=== PATIENT | female | born 1980 | race Caucasian/White ===

== ENCOUNTER 2017-03-17 09:44 | Emergency (ER) | payer MEDICAID ==
[~2017-03-17] VITALS: Ht 167.6 cm; Wt 77.3 kg
[~2017-03-17 09:44] MED LIST: IBUP-1986 PO
[2017-03-17] MEDS ORDERED: ketorolac trometh inj. 60 MG/2 ML VIAL IM ONE (10:10)
[2017-03-17] MEDS ORDERED: METH4TAB81 PO (10:41)
[2017-03-17] MEDS ORDERED: CYCL-1 PO (10:41)
[2017-03-17] MEDS ORDERED: TRAM50TA2 PO (10:41)
[2017-03-17 10:49] VITALS: BP 125/83
== END 2017-03-17 10:50 | disposition home or self-care (01) ==
LOC: ER 09:44
DX: M54.12 Radiculopathy, cervical region (principal); M79.602 Pain in left arm; R51 Headache; G89.29 Other chronic pain; M48.00 Spinal stenosis, site unspecified; M79.7 Fibromyalgia; F12.10 Cannabis abuse, uncomplicated; Z98.51 Tubal ligation status; Z79.899 Other long term (current) drug therapy
CPT/HCPCS: 72040; 96372; 99284; J1885

== ENCOUNTER 2017-06-16 15:24 | Emergency (ER) | payer MEDICAID ==
[~2017-06-16] VITALS: Ht 170.2 cm; Wt 75.0 kg
[2017-06-16 15:24] VITALS: BP 131/89
[~2017-06-16 15:24] MED LIST changes: +CYCL-1 PO; +METH4TAB81 PO
[2017-06-16] MEDS ORDERED: ketorolac trometh. 30mg/ml inj. IV ONE (15:40)
[2017-06-16] MEDS ORDERED: normal saline 1000ML IV soln IVB ONE (15:40)
[2017-06-16 15:45] LABS: BASOPHILS # (AUTO) 0.1 X10'3 (0-0.2); EOSINOPHILS # (AUTO) 0.1 X10'3 (0-0.9); EOSINOPHILS % (AUTO) 1.2 % (0-6); HEMATOCRIT 37.4 % (35.0-45.0); LYMPHOCYTES # (AUTO) 2.9 X10'3 (1.1-4.8); LYMPHOCYTES % (AUTO) 28.8 % (21-51); MEAN CORPUSCULAR HEMOGLOBIN 33.6 PG (27.0-31.0); MEAN CORPUSCULAR HGB CONC 34.6 % (33.0-36.5); MEAN PLATELET VOLUME 9.4 FL (7.4-10.4); MONOCYTES # (AUTO) 0.4 X10'3 (0-0.9); MONOCYTES % (AUTO) 4.1 % (2-12); NEUTROPHILS # (AUTO) 6.6 X10'3 (1.8-7.7); NEUTROPHILS % (AUTO) 64.9 % (42-75); PLATELET COUNT 202 X10'3 (140-440); RED BLOOD COUNT 3.86 X10'6 (4.20-5.60); RED CELL DISTRIBUTION WIDTH 12.6 % (11.5-14.5); WHITE BLOOD COUNT 10.2 X10'3 (4.5-11.0)
[2017-06-16 15:47] LABS: CLARITY,URINE SLIGHTLY CLOUDY (Clear); COLOR,URINE YELLOW (Yellow); GLUCOSE, URINE NEGATIVE (Neg); KETONES,URINE NEGATIVE (Neg); LEUKOCYTE ESTERASE ,URINE NEGATIVE (Neg); NITRITES, URINE NEGATIVE (Neg); OCCULT BLOOD,URINE NEGATIVE (Neg); PROTEIN,URINE TRACE mg/dl (Neg)
[2017-06-16 15:54] LABS: PROTHROMBIN TIME 10.7 SECONDS (9.0-12.0)
[2017-06-16 15:54] LABS: UA COLLECTION TYPE CLN CATCH MIDSTREAM
[2017-06-16 15:56] LABS: MUCUS STRANDS NONE SEEN /LPF (Neg); RBC,URINE 0-2 /HPF (0-2); SQUAMOUS EPITHELIAL CELL,UR MANY /LPF (FEW); WBC,URINE NONE SEEN /HPF (0-4)
[2017-06-16 15:57] LABS: BACTERIA,URINE 3+ /HPF (Neg)
[2017-06-16 16:00] LABS: ALANINE AMINOTRANSFERASE 22 U/L (12-78); ALBUMIN 4.4 G/DL (3.4-5.0); ALBUMIN/GLOBULIN RATIO 1.5 (1.1-1.5); ALKALINE PHOSPHATASE 45 IU/L (46-116); AMYLASE 40 U/L (25-115); ANION GAP 12 (8-16); ASPARTATE AMINO TRANSFERASE 20 U/L (10-37); BILIRUBIN,TOTAL 0.5 MG/DL (0.1-1.0); BLOOD UREA NITROGEN 13 MG/DL (7-18); BUN/CREATININE RATIO 17.6 (6.6-38.0); CALCIUM 8.5 MG/DL (8.5-10.1); CHLORIDE 108 MMOL/L (99-107); CREATININE 0.74 MG/DL (0.40-0.90); GLUCOSE 89 MG/DL (70-104); LIPASE 128 U/L (73-393); POTASSIUM 3.7 MMOL/L (3.5-5.1); SODIUM 143 MMOL/L (135-145); TOTAL CARBON DIOXIDE 22.8 MMOL/L (24-32); TOTAL PROTEIN 7.4 G/DL (6.4-8.2); eGFR 88 ML/MIN
[2017-06-16] MEDS ORDERED: ACET-3067 PO (16:20)
== END 2017-06-16 16:35 | disposition home or self-care (01) ==
LOC: ER 15:24
DX: R10.32 Left lower quadrant pain (principal); G89.29 Other chronic pain; F12.10 Cannabis abuse, uncomplicated; M79.7 Fibromyalgia; Z98.51 Tubal ligation status; Z79.899 Other long term (current) drug therapy
CPT/HCPCS: 36415; 74176; 80053; 81001; 82150; 83690; 85025; 85610; 99285

== ENCOUNTER 2017-07-16 11:17 | Emergency (ER) | payer MEDICAID ==
[~2017-07-16] VITALS: Ht 170.2 cm; Wt 73.2 kg
[~2017-07-16 11:17] MED LIST changes: +ACET-3067 PO
[2017-07-16] MEDS ORDERED: HYDROcodone/acetaminophen 10/325mg tab PO ONE (13:55)
[2017-07-16] MEDS ORDERED: ketorolac trometh inj. 60 MG/2 ML VIAL IM ONE (13:55)
[2017-07-16] MEDS ORDERED: LIDOcaine 1.5% w/epinephrine 1:200,000 5ml ampul IJ ONE (13:55)
[2017-07-16] MEDS ORDERED: BUPIVAcaine/PF 2.5 mg/ml (0.25%) 30ml vial IJ ONE ×2 (13:55→14:10)
[2017-07-16] MEDS ORDERED: BUPIVAcaine 0.5% inj/PF 30 ml vial IJ ONE (14:15)
[2017-07-16] MEDS ORDERED: dexamethasone 4mg tablet PO ONE (14:25)
[2017-07-16] MEDS ORDERED: HYDR-569 PO (14:36)
[2017-07-16] MEDS ORDERED: CYCL-1 PO (14:36)
[2017-07-16] MEDS ORDERED: NAPR-56 PO (14:36)
[2017-07-16 14:41] VITALS: BP 119/82
== END 2017-07-16 14:42 | disposition home or self-care (01) ==
LOC: ER 11:18
DX: M54.2 Cervicalgia (principal); M62.838 Other muscle spasm; F12.10 Cannabis abuse, uncomplicated; G89.29 Other chronic pain; Z79.899 Other long term (current) drug therapy
CPT/HCPCS: 20552; 96372; 99284; J1885; J3490; J8540

== ENCOUNTER 2017-11-12 11:27 | Emergency (ER) | payer MEDICAID ==
[~2017-11-12] VITALS: Ht 170.2 cm; Wt 75.6 kg
[~2017-11-12 11:27] MED LIST changes: -ACET-3067 PO; +HYDR-569 PO
[2017-11-12 11:43] VITALS: BP 136/73
[2017-11-12] MEDS ORDERED: PENI500T2 PO (13:39)
[2017-11-12] MEDS ORDERED: ACET-3067 PO (13:39)
[2017-11-12] MEDS ORDERED: ketorolac trometh inj. 60 MG/2 ML VIAL IM ONE (13:45)
[2017-11-12] MEDS ORDERED: ketorolac tromethamine 15mg/ml inj. IV ONE (13:45)
== END 2017-11-12 14:00 | disposition home or self-care (01) ==
LOC: ER 11:28
DX: K02.9 Dental caries, unspecified (principal); H93.12 Tinnitus, left ear; G89.29 Other chronic pain; F12.90 Cannabis use, unspecified, uncomplicated; Z79.899 Other long term (current) drug therapy; Z98.51 Tubal ligation status; Z87.442 Personal history of urinary calculi
CPT/HCPCS: 96372; 99283; J1885

== ENCOUNTER 2018-04-13 11:31 | Emergency (ER) | payer MEDICAID ==
[~2018-04-13] VITALS: Ht 170.2 cm; Wt 74.0 kg
[~2018-04-13 11:31] MED LIST changes: +HYDR-4383 PO; -HYDR-569 PO
[2018-04-13 12:22] VITALS: BP 121/77
== END 2018-04-13 13:45 | disposition home or self-care (01) ==
LOC: ER 11:32
DX: K21.9 Gastro-esophageal reflux disease without esophagitis (principal); G89.29 Other chronic pain; M54.9 Dorsalgia, unspecified; Z98.51 Tubal ligation status; F12.90 Cannabis use, unspecified, uncomplicated
CPT/HCPCS: 99281

== ENCOUNTER 2018-10-24 09:59 | Emergency (ER) | payer MEDICAID ==
[~2018-10-24] VITALS: Ht 167.6 cm; Wt 72.7 kg
[2018-10-24 10:19] LABS: HEMATOCRIT 41.2 % (35.0-45.0); MEAN CORPUSCULAR HEMOGLOBIN 33.5 PG (27.0-31.0); MEAN CORPUSCULAR VOLUME 98.3 FL (78-98); RED BLOOD COUNT 4.19 X10'6 (4.20-5.60); WHITE BLOOD COUNT 5.1 X10'3 (4.5-11.0)
[2018-10-24 10:20] LABS: BASOPHILS # (AUTO) 0.1 X10'3 (0-0.2); BASOPHILS % (AUTO) 1.5 % (0-1); EOSINOPHILS # (AUTO) 0.1 X10'3 (0-0.9); EOSINOPHILS % (AUTO) 1.2 % (0-6); LYMPHOCYTES # (AUTO) 1.4 X10'3 (1.1-4.8); LYMPHOCYTES % (AUTO) 28.2 % (21-51); MEAN CORPUSCULAR HGB CONC 34.1 g/dL (33.0-36.5); MONOCYTES # (AUTO) 0.3 X10'3 (0-0.9); MONOCYTES % (AUTO) 5.8 % (2-12); NEUTROPHILS # (AUTO) 3.2 X10'3 (1.8-7.7); NEUTROPHILS % (AUTO) 63.3 % (42-75); PLATELET COUNT 214 X10'3 (140-440); RED CELL DISTRIBUTION WIDTH 12.3 % (11.5-14.5)
[2018-10-24 10:39] LABS: ALANINE AMINOTRANSFERASE 20 U/L (12-78); ALBUMIN 3.9 G/DL (3.4-5.0); ALBUMIN/GLOBULIN RATIO 1.2 (1.1-1.5); ALKALINE PHOSPHATASE 50 IU/L (46-116); ANION GAP 8 (8-16); ASPARTATE AMINO TRANSFERASE 11 U/L (10-37); BILIRUBIN,TOTAL 0.4 MG/DL (0.1-1.0); BLOOD UREA NITROGEN 11 MG/DL (7-18); BUN/CREATININE RATIO 16.4 (6.6-38.0); CALCIUM 8.2 MG/DL (8.5-10.1); CHLORIDE 109 MMOL/L (99-107); CREATININE 0.67 MG/DL (0.40-0.90); GLUCOSE 74 MG/DL (70-104); PARTIAL THROMBOPLASTIN TIME 27 SECONDS (22-32); POTASSIUM 4.3 MMOL/L (3.5-5.1); SODIUM 142 MMOL/L (135-145); TOTAL PROTEIN 7.1 G/DL (6.4-8.2); eGFR > 90 ML/MIN
[2018-10-24] MEDS ORDERED: LORazepam 2 mg/ml vial IM ONE (11:55)
[2018-10-24 12:31] VITALS: BP 130/90
== END 2018-10-24 12:33 | disposition home or self-care (01) ==
LOC: ER 10:00
DX: F41.9 Anxiety disorder, unspecified (principal); R51 Headache; G89.29 Other chronic pain; M79.7 Fibromyalgia; F12.90 Cannabis use, unspecified, uncomplicated; Z87.442 Personal history of urinary calculi; Z98.51 Tubal ligation status; Z79.899 Other long term (current) drug therapy
CPT/HCPCS: 36415; 71046; 80053; 84484; 85025; 85610; 85730; 93005; 96372; 99284; J2060

== ENCOUNTER 2018-10-27 18:47 | Emergency (ER) | payer MEDICAID ==
[~2018-10-27] VITALS: Ht 167.6 cm; Wt 76.3 kg
[2018-10-27 19:08] LABS: BASOPHILS # (AUTO) 0.1 X10'3 (0-0.2); BASOPHILS % (AUTO) 0.8 % (0-1); EOSINOPHILS # (AUTO) 0.1 X10'3 (0-0.9); EOSINOPHILS % (AUTO) 0.6 % (0-6); HEMATOCRIT 40.8 % (35.0-45.0); HEMOGLOBIN 13.7 g/dl (12.0-16.0); LYMPHOCYTES # (AUTO) 2.6 X10'3 (1.1-4.8); LYMPHOCYTES % (AUTO) 31.2 % (21-51); MEAN CORPUSCULAR HEMOGLOBIN 33.4 PG (27.0-31.0); MEAN CORPUSCULAR HGB CONC 33.7 g/dL (33.0-36.5); MEAN CORPUSCULAR VOLUME 99.1 FL (78-98); MEAN PLATELET VOLUME 9.7 FL (7.4-10.4); MONOCYTES # (AUTO) 0.5 X10'3 (0-0.9); MONOCYTES % (AUTO) 5.5 % (2-12); NEUTROPHILS # (AUTO) 5.2 X10'3 (1.8-7.7); NEUTROPHILS % (AUTO) 61.9 % (42-75); PLATELET COUNT 221 X10'3 (140-440); RED BLOOD COUNT 4.12 X10'6 (4.20-5.60); RED CELL DISTRIBUTION WIDTH 12.4 % (11.5-14.5); WHITE BLOOD COUNT 8.3 X10'3 (4.5-11.0)
[2018-10-27 19:23] LABS: PARTIAL THROMBOPLASTIN TIME 28 SECONDS (22-32)
[2018-10-27 19:34] LABS: ALANINE AMINOTRANSFERASE 26 U/L (12-78); ALBUMIN/GLOBULIN RATIO 1.2 (1.1-1.5); ALKALINE PHOSPHATASE 53 IU/L (46-116); ANION GAP 9 (8-16); ASPARTATE AMINO TRANSFERASE 16 U/L (10-37); BILIRUBIN,TOTAL 0.4 MG/DL (0.1-1.0); BLOOD UREA NITROGEN 18 MG/DL (7-18); BUN/CREATININE RATIO 22.8 (6.6-38.0); CALCIUM 8.6 MG/DL (8.5-10.1); CHLORIDE 107 MMOL/L (99-107); CREATININE 0.79 MG/DL (0.40-0.90); GLUCOSE 99 MG/DL (70-104); POTASSIUM 3.9 MMOL/L (3.5-5.1); SODIUM 142 MMOL/L (135-145); TOTAL CARBON DIOXIDE 26.2 MMOL/L (24-32); TOTAL PROTEIN 7.3 G/DL (6.4-8.2); eGFR 81 ML/MIN
[2018-10-27] MEDS ORDERED: famotidine 20mg tablet PO ONE (20:25)
[2018-10-27] MEDS ORDERED: LIDOcaine Viscous 15ml cup PO ONE (20:25)
[2018-10-27] MEDS ORDERED: ketorolac trometh inj. 60 MG/2 ML VIAL IM ONE (20:25)
[2018-10-27] MEDS ORDERED: mag hydrox/Alum hydrox/simeth 30ml oral suspension PO ONE (20:25)
[2018-10-27 20:54] VITALS: BP 118/70
== END 2018-10-27 20:55 | disposition home or self-care (01) ==
LOC: ER 18:48
DX: M94.0 Chondrocostal junction syndrome [Tietze] (principal); R04.2 Hemoptysis; M54.2 Cervicalgia; R51 Headache; K21.9 Gastro-esophageal reflux disease without esophagitis; G89.29 Other chronic pain; M79.7 Fibromyalgia; F41.9 Anxiety disorder, unspecified; F12.90 Cannabis use, unspecified, uncomplicated; Z98.51 Tubal ligation status; Z79.899 Other long term (current) drug therapy
CPT/HCPCS: 36415; 71045; 80053; 84484; 85025; 85610; 85730; 93005; 96372; 99284; J1885

== ENCOUNTER 2020-01-05 23:24 | Emergency (ER) | payer MEDICAID ==
[~2020-01-05] VITALS: Ht 170.2 cm; Wt 81.8 kg
[2020-01-06] LABS: URINE HCG NEGATIVE (NEG)
[2020-01-06] MEDS ORDERED: normal saline 1000ML IV soln IVB ONE (00:05)
[2020-01-06] MEDS ORDERED: ondansetron/PF 4mg/2ml inj IV ONE (00:05)
[2020-01-06] MEDS ORDERED: LIDOcaine Viscous 15ml cup MM ONE (00:10)
[2020-01-06] MEDS ORDERED: mag hydrox/Alum hydrox/simeth 30ml oral suspension PO ONE (00:10)
[2020-01-06] MEDS ORDERED: famotidine 20mg tablet PO ONE (00:10)
[2020-01-06 00:13] LABS: CLARITY,URINE CLEAR (Clear); COLOR,URINE YELLOW (Yellow); GLUCOSE, URINE NEGATIVE (Neg); KETONES,URINE NEGATIVE (Neg); LEUKOCYTE ESTERASE ,URINE NEGATIVE (Neg); NITRITES, URINE NEGATIVE (Neg); OCCULT BLOOD,URINE NEGATIVE (Neg); PROTEIN,URINE NEGATIVE (Neg); UROBILINOGEN,URINE 0.2 E.U/dL (0.2-1.0)
[2020-01-06 00:17] LABS: UA COLLECTION TYPE CLN CATCH MIDSTREAM
--- NOTE | 2020-01-06 00:20 | NUR ---
pt to ct via wheel chair
[2020-01-06 00:21] LABS: BASOPHILS # (AUTO) 0.1 X10'3 (0-0.2); BASOPHILS % (AUTO) 1.2 % (0-1); EOSINOPHILS # (AUTO) 0.1 X10'3 (0-0.9); EOSINOPHILS % (AUTO) 0.7 % (0-6); HEMATOCRIT 37.1 % (35.0-45.0); HEMOGLOBIN 12.9 g/dl (12.0-16.0); LYMPHOCYTES # (AUTO) 3.3 X10'3 (1.1-4.8); LYMPHOCYTES % (AUTO) 37.4 % (21-51); MEAN CORPUSCULAR HEMOGLOBIN 33.5 PG (27.0-31.0); MEAN CORPUSCULAR HGB CONC 34.6 g/dL (33.0-36.5); MEAN CORPUSCULAR VOLUME 96.7 FL (78-98); MEAN PLATELET VOLUME 9.9 FL (7.4-10.4); MONOCYTES # (AUTO) 0.5 X10'3 (0-0.9); MONOCYTES % (AUTO) 5.3 % (2-12); NEUTROPHILS # (AUTO) 4.9 X10'3 (1.8-7.7); NEUTROPHILS % (AUTO) 55.4 % (42-75); PLATELET COUNT 194 X10'3 (140-440); RED BLOOD COUNT 3.84 X10'6 (4.20-5.60); RED CELL DISTRIBUTION WIDTH 12.1 % (11.5-14.5); WHITE BLOOD COUNT 8.8 X10'3 (4.5-11.0)
--- NOTE | 2020-01-06 00:30 | NUR ---
pt back from ct
--- NOTE | 2020-01-06 00:33 | NUR ---
pt ambulated to bathroom
[2020-01-06 00:34] LABS: ALANINE AMINOTRANSFERASE 15 U/L (12-78); ALBUMIN 4.2 G/DL (3.4-5.0); ALBUMIN/GLOBULIN RATIO 1.4 (1.1-1.5); ALKALINE PHOSPHATASE 50 IU/L (46-116); AMYLASE 39 U/L (25-115); ANION GAP 12 (8-16); ASPARTATE AMINO TRANSFERASE 15 U/L (10-37); BILIRUBIN,TOTAL 0.2 MG/DL (0.1-1.0); BLOOD UREA NITROGEN 10 MG/DL (7-18); BUN/CREATININE RATIO 15.4 (6.6-38.0); CALCIUM 8.5 MG/DL (8.5-10.1); CHLORIDE 106 MMOL/L (99-107); CREATININE 0.65 MG/DL (0.40-0.90); GLUCOSE 90 MG/DL (70-104); LIPASE 127 U/L (73-393); POTASSIUM 3.8 MMOL/L (3.5-5.1); SODIUM 141 MMOL/L (135-145); TOTAL CARBON DIOXIDE 22.9 MMOL/L (24-32); TOTAL PROTEIN 7.3 G/DL (6.4-8.2); eGFR > 90 ML/MIN
[2020-01-06] MEDS ORDERED: ketorolac trometh. 30mg/ml inj. IV ONE (00:45)
[2020-01-06] MEDS ORDERED: PANT-47 PO (01:15)
[2020-01-06 01:37] VITALS: BP 156/78
== END 2020-01-06 01:30 | disposition home or self-care (01) ==
LOC: ER 23:25
DX: R10.10 Upper abdominal pain, unspecified (principal); R51.9 Headache, unspecified; R11.2 Nausea with vomiting, unspecified; R05 Cough; Z20.828 Contact with and (suspected) exposure to other viral communicable diseases; K21.9 Gastro-esophageal reflux disease without esophagitis; G89.29 Other chronic pain; F41.9 Anxiety disorder, unspecified; F12.90 Cannabis use, unspecified, uncomplicated; Z87.442 Personal history of urinary calculi; Z98.51 Tubal ligation status; Z79.899 Other long term (current) drug therapy
CPT/HCPCS: 36415; 74176; 80053; 81003; 81025; 82150; 83690; 85025; 87635; 96361; 96374; 96375; 99284; J1885; J2405; J7030

== ENCOUNTER 2021-07-10 11:33 | Emergency (ER) | payer MEDICAID ==
[~2021-07-10] VITALS: Ht 170.2 cm; Wt 81.8 kg
[~2021-07-10 11:33] MED LIST changes: +PANT-47 PO
[2021-07-10 11:38] VITALS: BP 146/88
[2021-07-10] MEDS: LIDOcaine 1% 30ml preserv. free vial IJ ONE (13:04)
[2021-07-10] MEDS: amox tr/potassium clavulanate 875/125mg TAB PO ONE (13:08)
[2021-07-10] MEDS: HYDROcodone/acetaminophen 10/325mg tab PO ONE (13:08)
[2021-07-10] MEDS ORDERED: AMOX-117 PO (13:20)
== END 2021-07-10 13:28 | disposition home or self-care (01) ==
LOC: ER 11:33
DX: S81.812A Laceration without foreign body, left lower leg, initial encounter (principal); S93.401A Sprain of unspecified ligament of right ankle, initial encounter; S90.511A Abrasion, right ankle, initial encounter; M25.531 Pain in right wrist; K21.9 Gastro-esophageal reflux disease without esophagitis; G89.29 Other chronic pain; F41.9 Anxiety disorder, unspecified; F12.90 Cannabis use, unspecified, uncomplicated; Z98.51 Tubal ligation status; Z79.2 Long term (current) use of antibiotics; Z79.899 Other long term (current) drug therapy; W19.XXXA Unspecified fall, initial encounter; Y93.89 Activity, other specified; Y92.89 Other specified places as the place of occurrence of the external cause; Y99.8 Other external cause status
CPT/HCPCS: 12001; 12002; 73110; 73610; 99284

== ENCOUNTER 2024-11-22 16:51 | Emergency (ER) | payer MEDICAID ==
[~2024-11-22] VITALS: Ht 170.2 cm; Wt 90.9 kg
[2024-11-22 17:04] VITALS: BP 147/89; PULSE 81; RESP 18; TEMP 97.6; O2SAT 98
[2024-11-22] MEDS ORDERED: BUPR1FIL3 SL (17:24)
--- NOTE | 2024-11-22 17:26 | Physician Documentation ---
HPI ~ General Chief Complaint: Medication Request Stated Complaint: MED REQUEST Time Seen by MD: 17:14 Primary Medical Doctor: [facility] History of Present Illness HPI Comments This patient who is a 44-year-old male presents requesting a bridge prescription for Suboxone in order to abstain from street drugs and fentanyl Without Medications Since: Nov 22, 2024 Medication Reconciliation Allergies: Coded Allergies: No Known Allergies (Unverified , 11/22/24) Scheduled Buprenorphine Hcl/Naloxone Hcl (Suboxone 8 Mg-2 Mg Sl Film), 1 STRIP SL DAILY Hydrocodone/Acetaminophen ([place] 5-325 Tablet), 1 TAB PO HS Ibuprofen (Ibuprofen), 1 TAB PO Q8H Methylprednisolone (Medrol Dosepak), 4 MG PO DAILY Pantoprazole Sodium (PROTONIX tablet), 1 TAB PO DAILY Scheduled PRN Cyclobenzaprine* (Cyclobenzaprine*), 1 TABLET PO Q8H PRN for muscle spasms Cyclobenzaprine* (Cyclobenzaprine*), 1 TABLET PO HS PRN for muscle spasms Past Medical History Past Medical History: GERD, Kidney Stones, *MUSCULOSKELETAL*, Chronic Back Pain, Fibromyalgia, Anxiety Past Surgical History: tubal ligation Alcohol Use: None Drug Use: marijuana Lives with: Family Lives In: Home Occupation: employed Review of Systems All Other Systems at this time: Reviewed and Negative ROS As stated above in the HPI, otherwise all systems are reviewed and negative. Physical Exam Physical Exam Vital Signs: Temperature: 97.6, Source: Temporal, Heart Rate: 81, Respiratory Rate: 18, BP: 147/89, Pulse Oximetry: 98, Weight: 90.910 Physical Exam General: Alert, no apparent distress. Respiratory: Lungs clear, no respiratory distress. Cardiovascular: Regular rate and rhythm, no murmurs. Gastrointestinal: Soft, nontender, nondistended. Bowels sounds present. Neurologic: Oriented x4. Psychiatric: Normal mood and affect. Skin: Normal color, warm and dry. No edema, no ecchymosis. Progress Results/Orders Results/Orders Completed Orders - SHAY GONZALES NP Buprenorphine/Naloxone Sl Film (Suboxone (11/22/24 17:25) Medications Received in ER Medications (Trade) Dose Ordered Sig/[place] Route PRN Reason Start Time Stop Time Status Last Admin Dose Admin (Suboxone 8MG-2MG SL film) 1 film NOW ONCE SL 11/22/24 17:25 11/22/24 17:26 DC 11/22/24 17:42 1 FILM Vital Signs 11/22/24 17:04 Temp 97.6 Pulse 81 Resp 18 B/P (MAP) 147/89 Pulse Ox 98 Medical Decision Making Findings Started on Suboxone as requested. pneumatosis intestinalis received initial film while in the ED Differential Dx:Considerations: Include: Adverse circumstances, Economic, Psychosocial, Medical services unavail., Medication refill, Medication non- compliance, Other Departure Disposition: 01 HOME / SELF CARE / HOMELESS Impression: Primary Impression: Acute opioid withdrawal Discharge Instructions: Medicine Refill at the Emergency Department Referrals: NO PRIMARY CARE PROVIDER (PCP) Prescriptions Buprenorphine Hcl/Naloxone Hcl (Suboxone 8 Mg-2 Mg Sl Film) 8 Mg-2 Mg Film 1 STRIP SL DAILY for 7 Days, #7 STRIP Prov: SHAY GONZALES NP 11/22/24 Education Educated: Patient Educated regarding: diagnosis Signature Scribe Signature: gf Attestation: Scribed for Shay Gonzales Record Tester by Shay Gonzales - EDDIE . 11/22/24 17:25 SHAY GONZALES NP Nov 22, 2024 17:26
[2024-11-22] MEDS: buprenorphine/naloxone 8MG-2MG SUBlingual film SL ONE (17:42)
== END 2024-11-22 17:51 | disposition home or self-care (01) ==
LOC: ER 16:51
DX: F11.23 Opioid dependence with withdrawal (principal); K21.9 Gastro-esophageal reflux disease without esophagitis; F12.90 Cannabis use, unspecified, uncomplicated; F41.9 Anxiety disorder, unspecified; G89.29 Other chronic pain; M79.7 Fibromyalgia; Z98.51 Tubal ligation status; Z87.442 Personal history of urinary calculi; Z79.899 Other long term (current) drug therapy
CPT/HCPCS: 99283

== ENCOUNTER 2024-12-17 03:58 | Emergency (ER) | payer MEDICAID ==
[~2024-12-17] VITALS: Ht 170.2 cm; Wt 90.1 kg
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
[2024-12-17] MEDS: LEVONORGESTREL 1.5MG tablet 1.5 MG TABLET PO ONE (12:35)
[2024-12-17] MEDS: TINIDAZOLE 500 MG TABLET PO ONE (12:52)
[2024-12-17] MEDS: CefTRIAXone 500MG IM Kit w/LIDOcaine (for pt below or = to 150kg) IM ONE (12:52)
[2024-12-17] MEDS ORDERED: NAPR-56 PO (12:59)
[2024-12-17 13:04] VITALS: BP 116/72; PULSE 72; RESP 16; TEMP 97; O2SAT 98
== END 2024-12-17 13:18 | disposition home or self-care (01) ==
LOC: EEVIPCON 03:59 → ER 03:59
DX: G89.29 Other chronic pain (principal); M54.50 Low back pain, unspecified; T74.21XA Adult sexual abuse, confirmed, initial encounter; M79.7 Fibromyalgia; K21.9 Gastro-esophageal reflux disease without esophagitis; F41.9 Anxiety disorder, unspecified; F12.90 Cannabis use, unspecified, uncomplicated; Z87.442 Personal history of urinary calculi; Z98.51 Tubal ligation status; Z79.899 Other long term (current) drug therapy
CPT/HCPCS: 96372; 99285; J0696